=== PATIENT | male | born 1930 | race Hispanic/Latino ===

== ENCOUNTER 2017-08-22 08:05 | Emergency (ER) | payer MEDICARE ==
[2017-08-22] MEDS ORDERED: NACL 0.9% 1000 ML 1,000 ML IV ONE (08:30)
--- NOTE | 2017-08-22 08:46 | Emergency Department Report ---
HPI - General Time Seen by Provider: 08/22/17 08:38 - HPI HPI: Room 21 The patient is an 87-year-old male presenting with a chief complaint of altered mental status. Per EMS the patient's last normal time was 21:00 last night. The patient went to bed and the attempted to awaken the patient this morning at approximately 07:00 to find him in a confused state. The patient normally speaks but is been aphasic since he was awakened. Patient appears combative and confused at times. Upon arrival to the ED the patient remained aphasic and combative subsequently the decision to intubate using RSI was made in order to prevent delay in radiological evaluation. There is currently no family present 10:41 the patient's is currently at bedside now able to provide further history. She states the patient suffers from frequent falls and fell yesterday. The patient was walking to the kitchen and she heard him cry out for assistance. The states she went into the room to find him sitting upright on the floor. The patient complained of a headache after this fall and appeared unsteady. The attempted to feed the patient but he stated he was not hungry. The patient eventually went to bed. The states the patient usually awakens at 04:00 to use the restroom and when he did not do that she went to check on him. She states she tried to awaken him and he did not speak but just momentarily response and pointed at himself. The states she gave him a urinal and he only urinated a small amount still remained aphasic. At this time the called EMS for transport because she felt something was wrong. The patient's last fall before yesterday occurred 07/19/2017. The states he was in his normal state of health until yesterday with his fall Location: Mental state Duration: [See above] Quality: Aphasic, altered Severity: Moderate Modifying factors: [see above] Context: [see above] Mode of transportation: [not driving] ED Past Medical Hx - Past Medical History Hx Hypertension: Yes Hx Diabetes: Yes Hx Arthritis: Yes - Surgical History Hx Cholecystectomy: Yes Hx Appendectomy: Yes (1979) Additional Surgical History: prostate surgery - Family History Family history: no significant - Social History Smoking Status: Unknown if ever smoked - Medications Home Medications: Home Medications Medication Instructions Recorded Confirmed Last Taken Type AtorvaSTATin [Lipitor] 40 mg PO QHS #30 tablet 03/10/16 06/19/16 1 Week Ago Rx ~06/12/16 Clopidogrel [Plavix] 75 mg PO QDAY #30 tablet 03/10/16 06/16/16 06/09/16 Rx Docusate Sodium [Colace CAP] 100 mg PO BID #60 capsule 03/10/16 06/19/16 1 Week Ago Rx ~06/12/16 Insulin Glargine [Lantus VIAL] 30 units SUB-Q QHS 30 Days units 03/10/1606/18/16 22:00 Rx Pantoprazole [Protonix TAB] 40 mg PO QDAY #30 tablet 03/10/16 06/19/16 1 Week Ago Rx ~06/12/16 Acetaminophen [Tylenol] 650 mg PO Q6HR PRN 06/15/16 06/19/16 Unknown History Dextran 70/Hypromellose 1 each OP DAILY 06/15/16 06/19/16 06/18/16 09:00 History [Artificial Tears] Finasteride [Proscar] 5 mg PO QDAY 06/15/16 06/19/16 1 Week Ago History ~06/12/16 Tamsulosin [Flomax] 0.4 mg PO QDAY 06/15/16 06/19/16 1 Week Ago History ~06/12/16 Timolol 0.5% [Timoptic] 1 drops OP BID 06/15/16 06/19/16 06/18/16 19:30 History amLODIPine [Norvasc] 5 mg PO DAILY 06/15/16 06/19/16 06/18/16 09:00 History Aspirin EC [Aspirin Enteric Coated 81 mg PO QDAY 06/16/16 06/16/16 06/09/16 History TAB] Travoprost 0.004% Eye Drop 1 drop OU DAILY 06/16/16 06/19/16 06/18/16 19:30 History Ubidecarenone [Coq-10] 100 mg PO DAILY 06/16/16 06/19/16 1 Week Ago History ~06/12/16 traMADol [Ultram] 50 mg PO Q4HR PRN 06/16/16 06/16/16 Unknown History Insulin Aspart [NovoLOG 100 10 units SQ QAM 06/19/16 06/19/16 2 Days Ago History UNITS/ML VIAL] ~06/17/16 Naproxen Sodium [Aleve TAB] 1 tab PO PRN PRN 06/19/16 06/19/16 1 Week Ago History ~06/12/16 ED Review of Systems ROS: Stated complaint: AMS Other details as noted in HPI Comment: Unobtainable due to pts medical conditions Physical Exam - Physical Exam Physical Exam: GENERAL: The patient is well-developed well-nourished male lying on stretcher a phasic moving all extremities appearing confused and combative at times HEENT: Normocephalic. Atraumatic. Extraocular motions are intact. Surgical right pupil, left pupil 3-2 mm NECK: Supple. Trachea midline CHEST/LUNGS: Clear to auscultation. There is no respiratory distress noted. HEART/CARDIOVASCULAR: Regular. There is no tachycardia. There is no gallop rub or murmur. ABDOMEN: Abdomen is soft, nontender. Patient has normal bowel sounds. There is no abdominal distention. SKIN: There is no rash. There is no edema. There is no diaphoresis. NEURO: The patient is awake but does not speak. The patient is not cooperative. The patient moves all extremities. The patient does not cooperate with the neurological exam MUSCULOSKELETAL: There is no evidence of acute injury. ED Course - Consultations Consultation #1: 08/22/17 10:59 [facility] transfer line called 08/22/17 11:33 Case discussed with neurosurgeon Dr. Chen ([facility])-will accept - Intubation Time Out Performed: No Sedative: Etomidate Mg Given: 20 Paralytic: Succinylcholine Mg Given: 100 Laryngoscope: Tomi Size: 3 ET Tube Size: 8 Tube Secured Depth (cm): 23 Tube Secured Location: lips Tube Placement Confirmation: equal breath sounds bilat, no breath sounds over epi, confirmation by capnometr Patient Tolerated Procedure: well Intubation Complications: none ED Medical Decision Making - Lab Data Result diagrams: 08/22/17 09:02 08/22/17 09:02 Laboratory Tests 08/22/17 08/22/17 08/22/17 08:37 08:39 09:02 WBC 3.0 L RBC 3.60 L Hgb 10.6 L Hct 33.1 L MCV 92 MCH 29 MCHC 32 RDW 16.6 H Plt Count 58 L Lymph % (Auto) 16.9 Swisher % (Auto) 9.1 H Eos % (Auto) 0.7 Baso % (Auto) 0.1 Lymph # 0.5 L Swisher # 0.3 Eos # 0.0 Baso # 0.0 Seg Neutrophils % 73.2 H Seg Neutrophils # 2.2 PT INR APTT POC ABG pH POC ABG pCO2 POC ABG pO2 POC ABG HCO3 POC ABG Total CO2 POC ABG O2 Sat POC ABG Base Excess FiO2 Sodium Potassium Chloride Carbon Dioxide Anion Gap BUN Creatinine Estimated GFR BUN/Creatinine Ratio Glucose POC Glucose 412 H Calcium Total Bilirubin AST ALT Alkaline Phosphatase Total Creatine Kinase CK-MB (CK-2) CK-MB (CK-2) Rel Index Troponin T Total Protein Albumin Albumin/Globulin Ratio TSH Free T4 Urine Color Yellow Urine Turbidity Clear Urine pH 7.0 Ur Specific [place] 1.020 Urine Protein <15 mg/dl Urine Glucose (UA) >=500 Urine Ketones Tr Urine Blood Neg Urine Nitrite Neg Urine Bilirubin Neg Urine Urobilinogen < 2.0 Ur Leukocyte Esterase Lg Urine WBC (Auto) 39.0 H Urine RBC (Auto) 10.0 Urine Bacteria (Auto) 1+ Urine Yeast (Budding) 3+ Urine Opiates Screen Urine Methadone Screen Ur Barbiturates Screen Ur Phencyclidine Scrn Ur Amphetamines Screen U Benzodiazepines Scrn Urine Cocaine Screen U Marijuana (THC) Screen Drugs of Abuse Note 08/22/17 08/22/17 08/22/17 09:02 09:02 09:02 WBC RBC Hgb Hct MCV MCH MCHC RDW Plt Count Lymph % (Auto) Swisher % (Auto) Eos % (Auto) Baso % (Auto) Lymph # Swisher # Eos # Baso # Seg Neutrophils % Seg Neutrophils # PT 13.4 INR 0.97 APTT 36.2 POC ABG pH POC ABG pCO2 POC ABG pO2 POC ABG HCO3 POC ABG Total CO2 POC ABG O2 Sat POC ABG Base Excess FiO2 Sodium 140 Potassium 6.0 H Chloride 105.1 Carbon Dioxide 24 Anion Gap 17 BUN 17 Creatinine 0.8 Estimated GFR > 60 BUN/Creatinine Ratio 21 Glucose 426 H POC Glucose Calcium 8.2 L Total Bilirubin 0.60 AST 36 ALT 35 Alkaline Phosphatase 114 Total Creatine Kinase 206 H CK-MB (CK-2) 21.8 H CK-MB (CK-2) Rel Index 10.5 H Troponin T < 0.010 Total Protein 5.8 L Albumin 3.2 L Albumin/Globulin Ratio 1.2 TSH Free T4 Urine Color Urine Turbidity Urine pH Ur Specific [place] Urine Protein Urine Glucose (UA) Urine Ketones Urine Blood Urine Nitrite Urine Bilirubin Urine Urobilinogen Ur Leukocyte Esterase Urine WBC (Auto) Urine RBC (Auto) Urine Bacteria (Auto) Urine Yeast (Budding) Urine Opiates Screen Urine Methadone Screen Ur Barbiturates Screen Ur Phencyclidine Scrn Ur Amphetamines Screen U Benzodiazepines Scrn Urine Cocaine Screen U Marijuana (THC) Screen Drugs of Abuse Note 08/22/17 08/22/17 08/22/17 09:02 09:43 10:28 WBC RBC Hgb Hct MCV MCH MCHC RDW Plt Count Lymph % (Auto) Swisher % (Auto) Eos % (Auto) Baso % (Auto) Lymph # Swisher # Eos # Baso # Seg Neutrophils % Seg Neutrophils # PT INR APTT POC ABG pH 7.370 POC ABG pCO2 41.7 POC ABG pO2 123 H POC ABG HCO3 24.2 POC ABG Total CO2 25 POC ABG O2 Sat 99 POC ABG Base Excess -1 FiO2 50 Sodium Potassium Chloride Carbon Dioxide Anion Gap BUN Creatinine Estimated GFR BUN/Creatinine Ratio Glucose POC Glucose Calcium Total Bilirubin AST ALT Alkaline Phosphatase Total Creatine Kinase CK-MB (CK-2) CK-MB (CK-2) Rel Index Troponin T Total Protein Albumin Albumin/Globulin Ratio TSH 7.720 H Free T4 1.15 Urine Color Urine Turbidity Urine pH Ur Specific [place] Urine Protein Urine Glucose (UA) Urine Ketones Urine Blood Urine Nitrite Urine Bilirubin Urine Urobilinogen Ur Leukocyte Esterase Urine WBC (Auto) Urine RBC (Auto) Urine Bacteria (Auto) Urine Yeast (Budding) Urine Opiates Screen Presumptive negative Urine Methadone Screen Presumptive negative Ur Barbiturates Screen Presumptive negative Ur Phencyclidine Scrn Presumptive negative Ur Amphetamines Screen Presumptive negative U Benzodiazepines Scrn Presumptive negative Urine Cocaine Screen Presumptive negative U Marijuana (THC) Screen Presumptive negative Drugs of Abuse Note Disclamer - EKG Data -: EKG Interpreted by Me EKG shows normal: sinus rhythm Rate: bradycardia (47 bpm) - EKG Data When compared to previous EKG there are: previous EKG unavailable Interpretation: other (no ischemic changes seen) - Radiology Data Radiology results: report reviewed (CT head), image reviewed (CT head, chest x- ray) interpreted by me: Chest x-ray-ET tube in correct position. no ptx FINAL REPORT EXAM: CT HEAD WO CONTRAST HISTORY: AMS TECHNIQUE: CT of the head was performed. No intravenous contrast was administered. PRIORS: 05/02/2016 FINDINGS: There is moderately advanced cerebral atrophy. There is moderate ischemic change in the white matter. 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 There are low-density subdural fluid collections bilaterally, right more than left. These are slightly larger as compared to the prior and are compatible with subdural hygromas or old subdural hematomas. Subdural fluid causes some mass effect on the cerebral hemispheres, mostly on the right side. There is no midline shift. There is no evidence of intracranial hemorrhage. The ventricles are appropriate for brain volume. There is no skull fracture seen. The visualized aspects of the sinuses are clear. IMPRESSION: Bilateral subdural low-density fluid collections are consistent with subdural hygromas/old hematomas. These are slightly larger as compared to the prior and cause mild mass effect, right more than left. There is no midline shift. No acute hemorrhage or brain edema seen. Transcribed By: NESHA Dictated By: RICHELLE CARSON MD Electronically Authenticated By: RICHELLE CARSON MD Signed Date/Time: 08/22/17648 DD/ 8 TD/TT: 08/22/17648 - Differential Diagnosis ICH, CVA, metabolic encephalopathy Critical Care Time: Yes Critical care time in (mins) excluding proc time.: 30 Critical care attestation.: If time is entered above; I have spent that time in minutes in the direct care of this critically ill patient, excluding procedure time. ED Disposition Clinical Impression: Altered mental status, Bilateral subdural hematomas Disposition: [id number]/TX-70 ANOTHER TYPE [facility]ARE Is pt being admited?: No Does the pt Need Aspirin: No Condition: Serious Referrals: PRIMARY CARE, [Primary Care Provider] - 3-5 Days Time of Disposition: 11:55 (awaiting transport)
[2017-08-22] MEDS ORDERED: VERSED IV NR (09:00)
[2017-08-22] MEDS ORDERED: VASELINE LIP THERAPY TP PRN (09:08)
[2017-08-22] MEDS ORDERED: ARTIFICIAL TEARS OPHTH OINT OU PRN (09:08)
[2017-08-22 09:44] LABS: ISTAT Base Excess -1; ISTAT HCO3 24.2; ISTAT PCO2 41.7 (35-45); ISTAT PO2 123 (80-105); ISTAT SO2 99; ISTAT TCO2 25
[2017-08-22 09:51] LABS: Creatine Kinase MB 21.8 ng/mL (0.0-4.0)
[2017-08-22 09:55] LABS: Alanine Aminotransferase 35 units/L (7-56); Albumin 3.2 g/dL (3.9-5); Albumin/Globulin Ratio 1.2 %; Alkaline Phosphatase 114 units/L (35-129); Anion Gap 17 mmol/L; BUN/Creatinine Ratio 21; Blood Urea Nitrogen 17 mg/dL (9-20); Calcium 8.2 mg/dL (8.4-10.2); Carbon Dioxide 24 mmol/L (22-30); Chloride 105.1 mmol/L (98-107); Creatine Kinase 206 units/L (55-170); Glucose 426 mg/dL (75-100); Sodium 140 mmol/L (137-145); Total Protein 5.8 g/dL (6.3-8.2)
[2017-08-22 09:56] LABS: Basophils % (Auto) 0.1 % (0.0-1.8); Eosinophils % (Auto) 0.7 % (0.0-4.3); Hematocrit 33.1 % (35.5-45.6); Hemoglobin 10.6 gm/dl (11.8-15.2); Mean Corpuscular HGB Conc 32 % (32-34); Mean Corpuscular Hemoglobin 29 pg (28-32); Mean Corpuscular Volume 92 fl (84-94); Platelet Count 58 K/mm3 (140-440); Red Cell Distribution Width 16.6 % (13.2-15.2)
[2017-08-22] MEDS ORDERED: MIDAZOLAM 100 MG in NACL 0.9% 80 ML IV SCH (10:00)
[2017-08-22] MEDS ORDERED: NACL 0.9% 500 ML IV SCH (10:00)
[2017-08-22 10:14] LABS: INR 0.97 (0.87-1.13)
[2017-08-22 10:15] LABS: Partial Thromboplastin Time 36.2 Sec. (24.2-36.6)
[2017-08-22 10:34] LABS: Urine Drugs of Abuse Note Disclamer
[2017-08-22 10:46] LABS: Bacteria,Urine 1+ /HPF (Negative); Bilirubin,Urine NEG (Negative); Blood,Urine NEG (Negative); Ketones,Urine TR mg/dL (Negative); Leukocyte Esterase,Urine LG (Negative); Nitrite,Urine NEG (Negative); Protein,Urine <15 mg/dL mg/dL (Negative); Urobilinogen,Urine < 2.0 mg/dL (<2.0)
--- NOTE | 2017-08-22 10:53 | Cat Scan Report ---
FINAL REPORT EXAM: CT HEAD WO CONTRAST HISTORY: AMS TECHNIQUE: CT of the head was performed. No intravenous contrast was administered. PRIORS: 05/02/2016 FINDINGS: There is moderately advanced cerebral atrophy. There is moderate ischemic change in the white matter. 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 There are low-density subdural fluid collections bilaterally, right more than left. These are slightly larger as compared to the prior and are compatible with subdural hygromas or old subdural hematomas. Subdural fluid causes some mass effect on the cerebral hemispheres, mostly on the right side. There is no midline shift. There is no evidence of intracranial hemorrhage. The ventricles are appropriate for brain volume. There is no skull fracture seen. The visualized aspects of the sinuses are clear. IMPRESSION: Bilateral subdural low-density fluid collections are consistent with subdural hygromas/old hematomas. These are slightly larger as compared to the prior and cause mild mass effect, right more than left. There is no midline shift. No acute hemorrhage or brain edema seen.
--- NOTE | 2017-08-22 11:35 | XRay Report ---
PORTABLE CHEST INDICATION: Status post intubation, altered mental status. COMPARISON: 05/02/2016 FINDINGS: Portable, frontal chest radiograph demonstrates new endotracheal tube tip approximately 2 cm above the brii. Left retrocardiac opacity also suspected, partly obscuring the left hemidiaphragm medially, though patient now also rotated to the left. Asymmetric pulmonary haziness also seen, more diffusely throughout the right lung. Subtle left pleural effusion not excluded. EKG leads. Stable bones. CONCLUSION: Interval intubation with congestive pulmonary haziness and left lung base opacity/consolidation suspected new since April 2016, as described. Please correlate. Thank you for the opportunity to participate in this patient's care.
[2017-08-22 12:05] VITALS: BP 152/80
[2017-08-22] MEDS ORDERED: KEPPRA 750 MG in D5W 100 ML IV ONE (12:30)
[2017-08-22] MEDS ORDERED: NACL 0.9% 1000 ML 1,000 ML IV SCH (13:00)
[2017-08-22] MEDS ORDERED: ZEMURON IV ONE (14:41)
[2017-08-22] MEDS ORDERED: VERSED IV ONE (14:41)
[2017-08-22] MEDS ORDERED: QUELICIN ONE (14:41)
[2017-08-22] MEDS ORDERED: AMIDATE IV ONE (14:41)
== END 2017-08-22 12:25 | disposition other institution (70) ==
LOC: ED 08:26
DX: R41.82 Altered mental status, unspecified (principal); I62.00 Nontraumatic subdural hemorrhage, unspecified; I10 Essential (primary) hypertension; E11.9 Type 2 diabetes mellitus without complications; M19.90 Unspecified osteoarthritis, unspecified site; Z79.82 Long term (current) use of aspirin; Z79.4 Long term (current) use of insulin
CPT/HCPCS: 31500; 36415; 70450; 71010; 80053; 80307; 81001; 82140; 82550; 82553; 82803; 82962; 84132; 84439; 84443; 84484; 85025; 85610; 85730; 87070; 87205; 93005; 93010; 96361; 96365; 99291; G0480; J0330; J1953; J2250; 80320; 94002